=== PATIENT | male | born 1990 | race American Indian/Alaskan Native ===

== ENCOUNTER 2016-06-23 13:46 | Emergency (ER) | payer SELFPAY ==
--- NOTE | 2016-06-23 16:25 | XRay Report ---
FINAL REPORT PROCEDURE: XR ANKLE 3 LT TECHNIQUE: LEFT ankle radiographs, AP, lateral, and oblique views. CPT 77922 HISTORY: LEFT ANKLE PAIN / SWELLING COMPARISON: No prior studies are available for comparison. FINDINGS: Fracture (s) and/or Dislocation(s): None. Alignment: Normal. Joint space(s): Normal. Soft tissues: There is mild soft tissue swelling overlying the lateral malleolus.. Bone mineralization: Normal. Foreign bodies: None. Calcaneal spurring: None. IMPRESSION: Mild soft tissue swelling lateral malleolus otherwise negative exam. No fracture or dislocation is seen..
[2016-06-23] MEDS ORDERED: TORADOL IM ONE (16:57)
[2016-06-23] MEDS ORDERED: BACTRIM DS PO ONE (16:57)
[2016-06-23] MEDS ORDERED: NORCO 5/325 PO ONE (16:57)
[2016-06-23] MEDS ORDERED: KEFLEX PO ONE (16:58)
--- NOTE | 2016-06-23 18:57 | Emergency Department Report ---
Entered by SINDHU DUNN, acting as scribe for CAROL PURCELL PA. ED Lower Extremity HPI - General Chief Complaint: Extremity Injury, Lower Stated Complaint: LEFT ANKLE PAIN Time Seen by Provider: 06/23/16 15:17 Source: patient Mode of arrival: Ambulatory Limitations: No Limitations - History of Present Illness Initial Comments: 26 year old male with a PMHx of asthma presents to the ED c/o lateral malleolus pain on his left ankle that began 4 days ago. Patient states that he's had episodes of left ankle pain that began about 4 weeks ago and the episodes usually go away, but this episode persisted. Rates left ankle pain a 10 out of 10 in severity, but he is ambulatory and drove himself to the ED. Reports left ankle swelling and erythema, but he denies numbness, tingling, fever, chills, ecchymosis, and trauma to left ankle. He also denies playing any sports or exercise. He is not currently on any medication. NKDA. RUGGIERO Complaint: other (left ankle pain below lateral malleolus) Onset/Timin -: days(s) Injury: Ankle: Left ( below lateral malleolus left ankle pain, not injury) Severity: moderate Severity scale (0 -10): 10 Worsens With: weight bearing, movement (walking), palpation Other Symptoms: other (swelling around lateral malleolus on left ankle) Associated Symptoms: swelling (around the lateral malleolus on left ankle), able to partially bear weight, ambulatory. denies: numbness, tingling, other ( bruising, fever, and chills, but reports erythema to area around lateral malleolus on left ankle) - Related Data Previous Rx's Medication Instructions Recorded Last Taken Type Cephalexin [Keflex] 500 mg PO Q12HR #14 cap 06/23/16 Unknown Rx HYDROcodone/APAP 5-325 [Timbo 1 each PO Q6HR PRN #15 tablet 06/23/16 Unknown Rx 5/325] Naproxen [Naprosyn TAB] 500 mg PO BID PRN #30 tablet 06/23/16 Unknown Rx Sulfamethoxazole/Trimethoprim 1 each PO BID #14 tablet 06/23/16 Unknown Rx [Bactrim DS TAB] Allergies Allergy/AdvReac Type Severity Reaction Status Date / Time No Known Allergies Allergy Unverified 06/23/16 14:32 ED Review of Systems Comment: All other systems reviewed and negative Constitutional: denies: chills, fever, other (tingling) Musculoskeletal: joint swelling (left ankle around lateral malleolus), other ( left lower leg pain that radiates from the left ankle) Skin: other (erythema around the lateral malleolus on the left ankle) Neurological: denies: numbness ED Past Medical Hx - Past Medical History Hx Asthma: Yes - Surgical History Past Surgical History?: No - Social History Smoking Status: Never Smoker Substance Use Type: Alcohol, Marijuana - Medications Home Medications: Home Medications Medication Instructions Recorded Confirmed Last Taken Type Cephalexin [Keflex] 500 mg PO Q12HR #14 cap 06/23/16 Unknown Rx HYDROcodone/APAP 5-325 [Timbo 1 each PO Q6HR PRN #15 tablet 06/23/16 Unknown Rx 5/325] Naproxen [Naprosyn TAB] 500 mg PO BID PRN #30 tablet 06/23/16 Unknown Rx Sulfamethoxazole/Trimethoprim 1 each PO BID #14 tablet 06/23/16 Unknown Rx [Bactrim DS TAB] ED Physical Exam - General Limitations: No Limitations General appearance: alert, in no apparent distress - Head Head exam: Present: atraumatic, normocephalic - Eye Eye exam: Present: normal appearance, EOMI - ENT ENT exam: Present: normal exam, mucous membranes moist - Neck Neck exam: Present: normal inspection, full ROM. Absent: lymphadenopathy - Respiratory Respiratory exam: Present: normal lung sounds bilaterally. Absent: respiratory distress - Cardiovascular Cardiovascular Exam: Present: regular rate, normal rhythm - GI/Abdominal GI/Abdominal exam: Present: soft. Absent: distended, tenderness, guarding, rebound, rigid - Expanded Lower Extremity Exam Left Hip exam: Present: normal inspection, full ROM. Absent: tenderness Upper Leg exam: Present: normal inspection, full ROM, tenderness (minimal tendernesss that radiates from ankle pain). Absent: swelling Knee exam: Present: normal inspection, full ROM. Absent: tenderness Lower Leg exam: Present: full ROM, tenderness (minimal tenderness to left lower leg due to pain radiating from left ankle). Absent: swelling Ankle exam: Present: full ROM, tenderness (below lateral malleolus on left ankle ), swelling (around lateral malleolus on left ankle), erythema (area below lateral malleolus on left ankle). Absent: abrasion, laceration, ecchymosis, deformity, dislocation Foot/Toe exam: Present: full ROM, tenderness (minimal TTP on anterior and dorsal side of left foot ). Absent: swelling, abrasion, laceration, ecchymosis , deformity, dislocation, erythema, puncture wound Neuro vascular tendon exam: Present: no vascular compromise. Absent: pulse deficit, abnormal cap refill, motor deficit, sensory deficit, tendon deficit, pallor Gait: Positive: antalgic 1 - slight redness here, borders of cellulitis marked, about 5cm in width - Back Exam Back exam: Present: normal inspection, full ROM - Neurological Exam Neurological exam: Present: alert, oriented X3, CN II-XII intact - Psychiatric Psychiatric exam: Present: normal affect, normal mood - Skin Skin exam: Present: warm, dry, intact, erythema (area around lateral malleolus on left ankle). Absent: ecchymosis (left ankle) ED Course Vital Signs 06/23/16 06/23/16 06/23/16 14:33 17:16 17:17 Temperature 97.6 F Pulse Rate 86 Respiratory 16 20 16 Rate Blood Pressure 127/88 O2 Sat by Pulse 100 Oximetry ED Lower Extremity MDM - Medical Decision Making A/P: Left ankle cellulitis 1-small area left lateral malleolus no associated abscess good distal pulses and good distal sensation patient is ambulatory 2-Bactrim and Keflex twice a day 7 days 3-short course of naproxen and tramadol when necessary for pain 4-RICE therapy 5- I advised patient to return to the ED if cellulitis spreads beyond borders marked currently approximately 4-5 cm in diameter or if he cannot bear any weight on foot or if he develops fever or chills ED Disposition Clinical Impression: Cellulitis of left ankle Disposition: DISCHARGED TO HOME OR SELFCARE Is pt being admited?: No Does the pt Need Aspirin: No Condition: Stable Instructions: Cellulitis (ED) Prescriptions: Cephalexin [Keflex] 500 mg PO Q12HR #14 cap HYDROcodone/APAP 5-325 [Timbo 5/325] 1 each PO Q6HR PRN #15 tablet PRN Reason: Pain Naproxen [Naprosyn TAB] 500 mg PO BID PRN #30 tablet PRN Reason: Pain Sulfamethoxazole/Trimethoprim [Bactrim DS TAB] 1 each PO BID #14 tablet Referrals: GRETTA PHILLIPS MD [Staff Physician] - 3-5 Days Forms: Work/School Release Form(ED) Time of Disposition: 18:54 This documentation as recorded by the MONA tamez JASMINE,accurately reflects the service I personally performed and the decisions made by JAZZY clancy RICHARD J PA.
[2016-06-23 19:23] VITALS: BP 120/74
== END 2016-06-23 19:22 | disposition home or self-care (01) ==
LOC: ED 13:46
DX: L03.116 Cellulitis of left lower limb (principal); J45.909 Unspecified asthma, uncomplicated; F12.10 Cannabis abuse, uncomplicated
CPT/HCPCS: 73610; 96372; 99283; J1885